=== PATIENT | female | born 1970 | race Caucasian/White ===

== ENCOUNTER → 2017-04-30 | Day surgery (SDC) | payer OTHER ==
[2017-04-29 13:31] LABS: PRE OP INR 1.1 INR
[2017-04-29 13:33] LABS: BASOPHILS % (AUTO) 0.5 % (0-1); EOSINOPHILS # (AUTO) 0.2 X10'3 (0-0.9); EOSINOPHILS % (AUTO) 2.3 % (0-6); LYMPHOCYTES # (AUTO) 2.5 X10'3 (1.1-4.8); LYMPHOCYTES % (AUTO) 36.6 % (21-51); MEAN CORPUSCULAR HEMOGLOBIN 31.5 PG (27.0-31.0); MEAN CORPUSCULAR VOLUME 98.5 FL (78-98); MEAN PLATELET VOLUME 8.2 FL (7.4-10.4); MONOCYTES # (AUTO) 0.5 X10'3 (0-0.9); MONOCYTES % (AUTO) 7.2 % (2-12); NEUTROPHILS # (AUTO) 3.7 X10'3 (1.8-7.7); NEUTROPHILS % (AUTO) 53.4 % (42-75); PRE OP HEMATOCRIT 30.1 % (35.0-45.0); PRE OP PLATELET COUNT 236 X10'3 (140-440); RED BLOOD COUNT 3.06 X10'6 (4.20-5.60); RED CELL DISTRIBUTION WIDTH 22.7 % (11.5-14.5)
[2017-04-29 13:36] LABS: ALBUMIN 2.9 G/DL (3.4-5.0); ALBUMIN/GLOBULIN RATIO 0.6 (1.1-1.5); ALKALINE PHOSPHATASE 87 IU/L (46-116); BLOOD UREA NITROGEN 9 MG/DL (7-18); BUN/CREATININE RATIO 9.6 (6.6-38.0); CHLORIDE 107 MMOL/L (99-107); CREATININE 0.94 MG/DL (0.40-0.90); PRE OP ALT 19 U/L (30-65); PRE OP ANION GAP 8 (8-16); PRE OP AST 40 U/L (10-37); PRE OP BILIRUB, TOTAL 0.7 MG/DL (0.0-1.0); PRE OP GLUCOSE 75 MG/DL (70-104); PRE OP POTASSIUM 3.9 MMOL/L (3.4-5.1); PRE OP SODIUM 144 MMOL/L (135-145); TOTAL CARBON DIOXIDE 28.7 MMOL/L (24-32); TOTAL PROTEIN 7.4 G/DL (6.4-8.2); eGFR 64 ML/MIN
[2017-04-29 13:52] LABS: PRE OP HEMOGLOBIN 9.6 g/dL (12.0-16.0)
[~2017-04-30] VITALS: Ht 165.1 cm; Wt 139.3 kg
[~2017-04-30] MED LIST: ALPR-624 PO; ATE25T PO; CITA20TA11 PO; DOCUMENT DATE & TIME OF BETA-BLOCKER PO ONE; GABA-532 PO; HYDR-565 PO; INSU100V12 SQ; INSU100V13 SQ; LEVO200T8 PO; LISI-600 PO; METF1000 PO; PANT-47 PO; QUET-1 PO; SAXA5TAB PO; SIMV80TA2 PO; TOP100T PO; TRIA1TAB3 PO; albuterol 2.5 MG/3 ML nebule NEB ONE; enalaprilat dihydrate 2.5mg/2ml vial IV PRN; famotidine 20mg tablet PO ONE; fentaNYL/PF 50MCG/1 ML 2ML syringe IV PRN; hydrALAZINE 20mg/ml inj. IV PRN; morphine 4 MG/ML inj SYRINge IV PRN; ondansetron/PF 4mg/2ml inj IV PRN; ringers solution, lacted 1,000 ML IV SCH; vancomycin/NS 1 GM ADD-VANTAGE 250 ML X 1 DOSE IV ONE
[2017-04-30 08:15] VITALS: BP 117/72
[2017-04-30 10:07] VITALS: BP 117/72
== END | disposition home or self-care (01) ==
LOC: PAS 07:53
PROVIDERS: ATTEND Surgery
DX: T81.4XXS Infection following a procedure, sequela (principal); Z53.09 Procedure and treatment not carried out because of other contraindication; E11.9 Type 2 diabetes mellitus without complications; K74.60 Unspecified cirrhosis of liver; K76.6 Portal hypertension
CPT/HCPCS: 36415; 71046; 74176; 80053; 82948; 85025; 85610; 85730; 93005; J3370; J7120